=== PATIENT | female | born 1995 | race Two or more races ===

== ENCOUNTER 2018-03-16 14:30 | Emergency (ER) | payer OTHER ==
[~2018-03-16] VITALS: Ht 162.6 cm; Wt 81.6 kg
--- NOTE | 2018-03-16 15:15 | Emergency Room Report ---
History of Present Illness General Chief Complaint: General Complaint Source: Patient Present Illness HPI 22 YO Female Presents to the emergency department complaining of bee sting to the right side of her scalp just prior to arrival. Patient denies previous history of bee sting she states she does not know whether or not she has allergic reactions. Patient denies wheezing, shortness of breath, swelling of the lips or tongue, itching or swelling of the throat. Patient denies rash. Patient denies pain at this time she denies bleeding. Allergies: Coded Allergies: No Known Allergies (Unverified , 03/16/18) Patient History Past Medical History: see triage record Past Surgical History: none Pertinent Family History: none Last Menstrual Period: 02/16/18 Immunizations: other Reviewed Nursing Documentation: PMH: Agreed; PSxH: Agreed Nursing Documentation-PMH Past Medical History: No Stated History Review of Systems All Other Systems: negative except mentioned in HPI Physical Exam Vital Signs Date Time Temp Pulse Resp B/P (MAP) Pulse Ox O2 Delivery O2 Flow Rate FiO2 03/16/18 14:36 98.7 99 18 122/84 96 Room Air 98.8 Sp02 EP Interpretation: reviewed, normal General Appearance: no apparent distress, alert, GCS 15, non-toxic Head: normocephalic, atraumatic, other Eyes: bilateral eye normal inspection, bilateral eye PERRL ENT: hearing grossly normal, no angioedema, normal voice Neck: full range of motion Respiratory: lungs clear, normal breath sounds, no wheezing, speaking full sentences Cardiovascular #1: regular rate, rhythm Musculoskeletal: back normal, gait/station normal, normal range of motion, non- tender Neurologic: alert, oriented x3, responsive, motor strength/tone normal, sensory intact, speech normal, grossly normal Psychiatric: judgement/insight normal Skin: normal color, no rash, warm/dry, well hydrated, other - bee sting, stinger visible on the anterior scalp. Lymphatic: no adenopathy Medical Decision Making PA Attestation Dr. Carr is my supervising Physician whom patient management has been discussed with. Diagnostic Impression: Primary Impression: Bee sting Qualified Codes: T63.444A - Toxic effect of venom of bees, undetermined, initial encounter ER Course 22 YO Female Presents to the emergency department complaining of bee sting to the right side of her scalp just prior to arrival. Patient denies previous history of bee sting she states she does not know whether or not she has allergic reactions. Patient denies wheezing, shortness of breath, swelling of the lips or tongue, itching or swelling of the throat. Patient denies rash. Patient denies pain at this time she denies bleeding. Ddx considered but are not limited to bee sting, cellulitis, scabies, insect bites, tic bites, spider bites, contact dermatitis, Drug reaction, allergic reaction, fungal infection, lice. Vital signs: are WNL, pt. is afebrile H&PE are most consistent with bee sting, stinger visible ORDERS: none required at this time, the diagnosis is clinical ED INTERVENTIONS: -Removed Stinger using the flat edge of an un-opened alcohol prep pad. DISCHARGE: At this time pt. is stable for d/c to home. Will provide printed patient care instructions, and any necessary prescriptions. Care plan and follow up instructions have been discussed with the patient prior to discharge. Last Vital Signs Date Time Temp Pulse Resp B/P (MAP) Pulse Ox O2 Delivery O2 Flow Rate FiO2 03/16/18 14:36 98.7 99 18 122/84 96 Room Air 98.8 Disposition: HOME, SELF-CARE Condition: Stable Scripts Bacitracin/Polymyxin B Sulfate (BACITRACIN-POLYMYXIN OINTMENT) 28.35 Gm Oint...g. 1 APPLIC TP BID, #28.3 GM Prov: Rose Sexton 03/16/18 Hydrocortisone (Hydrocortisone Cream 2.5%) Y Cream.appl 1 APPLIC TP BID, #22 GM Prov: Rose Sexton 03/16/18 Patient Instructions: Bee, Wasp, or Hornet Sting Additional Instructions: Take medications as directed. Follow up with a Primary Care Provider in 3-5 days, even if your symptoms have resolved. --Please review list of primary care clinics, if you do not already have a primary care provider Return sooner to ED if new symptoms occur, or current symptoms become worse. - Please note that this Emergency Department Report was dictated using [employer] support tech technology software, occasionally this can lead to erroneous entry secondary to interpretation by the dictation equipment. Rose Sexton Mar 16, 2018 15:15
[2018-03-16] MEDS ORDERED: BACITRACIN-P28.35 GM TP (15:16)
[2018-03-16] MEDS ORDERED: HYDROCORTISONE30 G2 TP (15:16)
[2018-03-16 16:59] VITALS: BP 122/84
[2018-03-16 17:01] VITALS: BP 122/84
== END 2018-03-16 16:30 | disposition home or self-care (01) ==
LOC: EMR 15:53
DX: T63.441A Toxic effect of venom of bees, accidental (unintentional), initial encounter (principal); Y92.9 Unspecified place or not applicable
CPT/HCPCS: 99283